=== PATIENT | female | born 1965 | race Caucasian/White ===

== ENCOUNTER 2019-04-15 09:40 | Observation (INO) ==
[2019-04-15] MEDS ORDERED: ASPIRIN 325 MG TABLET PO STA (10:07)
[2019-04-15] MEDS ORDERED: METOPROLOL TARTRATE 5 MG/5 ML VIAL IV STA (10:07)
[2019-04-15] MEDS ORDERED: ENOXAPARIN 100 MG/ML SYRINGE SUBCUT STA (10:07)
[2019-04-15] MEDS ORDERED: ONDANSETRON 4 MG/2 ML VIAL IV STA ×2 (10:07→11:51)
[2019-04-15 10:40] LABS: Basophils % 0.3 % (0.0-0.8); Eosinophils # 0.1 10*3/uL (0.0-0.87); Eosinophils % 1.1 % (0.00-10.9); Hematocrit 39.2 VOL% (35.7-47.0); Hemoglobin 13.5 GM/DL (12.0-16.0); Immature Granulocytes % 0.6 %; Immature Granulocytes Absolute 0.07 #; Lymphocytes # 1.5 10*3/uL (1.4-4.0); Lymphocytes % 12.5 % (21.3-54.2); Mean Corpuscular HGB Conc 34.4 GM/DL (32-36); Mean Corpuscular Volume 89.3 FL (87-102); Mean Platelet Volume 9.4 FL (9.6-12.0); Monocytes % 4.2 % (1.7-12.7); Neutrophils % 81.3 % (38.7-73.9); Platelet Count 298 T/CUMM (130-400); Red Blood Count 4.39 MC/CUMM (3.8-5.5); Red Cell Distribution Width 11.9 % (9.3-17.3); White Blood Count 11.9 T/CUMM (4-12)
[2019-04-15 10:50] LABS: INR 0.9; PT Patient Result 9.9 SECS (9.6-12.2); Partial Thromboplastin Time 23.6 SECS (20.8-36.0)
[2019-04-15 11:21] LABS: Alanine Aminotransferase 27 U/L (13-56); Albumin 3.7 G/DL (3.4-5.0); Alkaline Phosphatase 93 U/L (45-117); Aspartate Amino Transferase 14 U/L (0-37); Bilirubin,Total < 0.39 MG/DL (0.2-1.0); Blood Urea Nitrogen 14 MG/DL (7-18); Calcium 9.4 MG/DL (8.5-10.1); Estimated Glom Filtration Rate 70 ML/MIN; Glucose 129 MG/DL (74-106); Osmolality,Calculated 279.5 MOS/KG (273-304); Total Protein 7.4 G/DL (6.4-8.3)
[2019-04-15] MEDS ORDERED: MORPHINE 4 MG/1 ML VIAL IV STA (11:50)
[2019-04-15] MEDS ORDERED: MORPHINE 4 MG/1 ML VIAL ONE (11:51)
[2019-04-15] MEDS ORDERED: ACETAMINOPHEN 325 MG TABLET PO PRN (13:15)
[2019-04-15] MEDS ORDERED: DEXTROSE 10% 250 ML BAG IV PRN (13:15)
[2019-04-15] MEDS ORDERED: MORPHINE 4 MG/1 ML VIAL IV PRN (13:15)
[2019-04-15] MEDS ORDERED: ONDANSETRON 4 MG/2 ML VIAL IV PRN (13:15)
[2019-04-15] MEDS ORDERED: GLUCAGON 1 MG VIAL IM PRN (13:15)
[2019-04-15] MEDS ORDERED: MAGNESIUM SULF RIDER 2 GM in PREMIX 1 EACH IV PRN (13:15)
[2019-04-15] MEDS ORDERED: ALUM/MAG/SIMETH/LIDO VISC 1:1 30 ML BOTTLE PO PRN (13:15)
[2019-04-15] MEDS ORDERED: KETOROLAC 30 MG/1 ML VIAL IV ONE (15:35)
[2019-04-15] MEDS: PANTOPRAZOLE 40 MG TABLET PO SCH (17:08)
[2019-04-15] MEDS: LACTATED RINGERS 1,000 ML IV SCH (17:09)
[2019-04-15 20:05] LABS: Troponin I < 0.015 NG/ML (0.00-0.045)
[2019-04-15] MEDS ORDERED: SERTRALINE 25 MG TABLET PO SCH (21:00)
[2019-04-15] MEDS: GABAPENTIN 100 MG CAPSULE PO SCH (21:26)
[2019-04-16] MEDS: LACTATED RINGERS 1,000 ML IV SCH (00:58)
[2019-04-16 04:30] LABS: Basophils % 0.3 % (0.0-0.8); Eosinophils # 0.1 10*3/uL (0.0-0.87); Eosinophils % 0.7 % (0.00-10.9); Hematocrit 35.6 VOL% (35.7-47.0); Hemoglobin 12.2 GM/DL (12.0-16.0); Immature Granulocytes % 0.3 %; Immature Granulocytes Absolute 0.04 #; Lymphocytes % 17.4 % (21.3-54.2); Mean Corpuscular HGB Conc 34.3 GM/DL (32-36); Mean Platelet Volume 9.6 FL (9.6-12.0); Monocytes % 6.6 % (1.7-12.7); Neutrophils % 74.7 % (38.7-73.9); Platelet Count 273 T/CUMM (130-400); White Blood Count 11.6 T/CUMM (4-12)
[2019-04-16 04:51] LABS: Albumin 3.3 G/DL (3.4-5.0); Bilirubin,Total 0.4 MG/DL (0.2-1.0); Calcium 8.5 MG/DL (8.5-10.1); Osmolality,Calculated 280.3 MOS/KG (273-304); Risk Ratio 3.24; Total Protein 6.8 G/DL (6.4-8.3); VLDL CHOLESTEROL 47.6 MG/DL
[2019-04-16] MEDS ORDERED: KETOROLAC 30 MG/1 ML VIAL IV ONE (06:27)
[2019-04-16 07:41] LABS: Barbiturates Screen,Urine Negative (Negative); Benzodiazepines Screen,Urine Negative (Negative); Cannabinoid Screen,Urine Negative (Negative); Opiate Screen,Urine Positive (Negative); Phencyclidine Screen,Urine Negative (Negative)
[2019-04-16] MEDS: GABAPENTIN 100 MG CAPSULE PO SCH (08:18)
[2019-04-16] MEDS: PANTOPRAZOLE 40 MG TABLET PO SCH (08:18)
[2019-04-16] MEDS ORDERED: ASPIRIN EC 325 MG TABLET PO SCH (09:00)
[2019-04-16] MEDS ORDERED: ENOXAPARIN 80 MG/0.8 ML SYRINGE SUBCUT SCH (09:00)
[2019-04-16] MEDS: POTASSIUM CHLORIDE 20 MEQ TABLET PO PRN ×2 (09:46→11:39)
[2019-04-16 11:55] VITALS: BP 116/62
[2019-04-16] MEDS ORDERED: POTASSIUM CHLORIDE 20 MEQ TABLET PO ONE (11:58)
== END 2019-04-16 13:51 | disposition home or self-care (01) ==
LOC: N.EDINP 09:40 → N.ED 09:40 → SUATTDRO 13:15 → N.2W 15:01
PROVIDERS: ADMIT Internal Medicine; ATTEND Internal Medicine